=== PATIENT | female | born 1965 | race Two or more races ===

== ENCOUNTER 2024-07-13 16:01 | Emergency (ER) | payer MEDICAID, OTHER ==
[~2024-07-13] VITALS: Ht 154.9 cm; Wt 55.0 kg
--- NOTE | 2024-07-13 16:16 | ED.PDOC ---
History of Present Illness HPI Comments 58F who is malay speaking, presents to the Er w/ no prior Hx associated to the c/c of ABD pain. Pt reports on having LLQ pain which started yesterday as well as her having to strain to go to the bathroom. PM<Hx of DM. SHx of . Denies chills, fever, N/V/D, SOB, CP or other associated symptoms, modifiers or recent injuries or sick contact at this time. Chief Complaint: Abdominal Pain Time Seen by MD: 16:00 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 [employer] History Family History Family History: Reviewed,noncontributory to illness, Unobtainable Social History Smoker: Cigarettes, Less Than 1 Pack/Day Alcohol: Denies ETOH Use Drugs: Denies Drug Use Lives In: Home Constitutional: denies: chills, diaphoresis, fatigue, fever, malaise, sweats, weakness, others EENTM: denies: blurred vision, double vision, ear bleeding, ear discharge, ear drainage, ear pain, ear ringing, eye pain, eye redness, hearing loss, mouth pain, mouth swelling, nasal discharge, nose bleeding, nose congestion, nose pain, photophobia, tearing, throat pain, throat swelling, voice changes, others Respiratory: denies: cough, hemoptysis, orthopnea, SOB at rest, shortness of breath, SOB with excertion, stridor, wheezing, others Cardiovascular: denies: chest pain, dizzy spells, diaphoresis, Dyspnea on exertion, edema, irregular heart beat, left arm pain, lightheadedness, palpitations, PND, syncope, others Gastrointestinal: reports: abdominal pain; denies: abdomen distended, blood streaked bowels, constipated, diarrhea, dysphagia, difficulty swallowing, hematemesis, melena, nausea, poor appetite, poor fluid intake, rectal bleeding, rectal pain, vomiting, others Genitourinary: denies: abnormal vagina bleeding, burning, dyspareunia, dysuria, flank pain, frequency, hematuria, incontinence, pain, , vagina discharge, urgency, others Neurological: denies: dizziness, fainting, headache, left sided numbness, left sided weakness, numbness, paresthesia, pre-existing deficit, right sided numbn ess, right sided weakness, seizure, speech problems, tingling, tremors, weakness, others Musculoskeletal: denies: back pain, gout, joint pain, joint swelling, muscle pain, muscle stiffness, neck pain, others Integumetry: denies: bruises, change in color, change in hair/nails, dryness, laceration, lesions, lumps, rash, wounds, others Allergic/Immunocompromised: denies: Difficulty Healing, Frequent Infections, Hives, Itching, others Hematologic/Lymphatic: denies: anemia, blood clots, easy bleeding, easy bruising, swollen glands, others Endocrine: denies: excessive hunger, excessive sweating, excessive thirst, excessive urination, flushing, intolerance to cold, intolerance to heat, unexplained weight gain, unexplained weight loss, others Psychiatric: denies: anxiety, bipolar disorder, depression, hopeless, panic disorder, schizophrenia, sleepless, suicidal, others All Other Systems: Reviewed and Negative Physical Exam General Appearance: No Apparent Distress, Normal HEENT: Normal ENT Inspection, Pharynx Normal, TMs Normal Neck: Full Range of Motion, Non-Tender, Normal, Normal Inspection Respiratory: Chest Non-Tender, Lungs Clear, No Accessory Muscle Use, No Respiratory Distress, Normal Breath Sounds Cardiovascular: No Edema, No JVD, No Murmur, No Gallop, Normal Peripheral Pulses, Regular Rate/Rhythm Breast Exam: Deferred Gastrointestinal: No Organomegaly, Non Tender, No Pulsatile Mass, Normal Bowel Sounds, Soft Genitalia: Deferred Pelvic: Deferred Rectal: Deferred Extremities: No calf tenderness, Normal capillary refill, Normal inspection, Normal range of motion, Non-tender, No pedal edema Musculoskeletal : Apperance: Normal Neurologic: Alert, betting agency manager II-XII nml as Tested, No Motor Deficits, Normal Affect, Normal Mood, No Sensory Deficits Cerebellar Function: Normal Reflexes: Normal Skin: Dry, Normal Color, Warm Lymphatic: No Adenopathy Was a procedure done? Was a procedure done?: No Differential Dx Considerations may include: Constipation, gastritis, gastroenteritis, testicular or ovarian torsion, pyelonephritis, UTI, abdominal mass, ischemic colitis, infectious colitis, a that is, ovarian cysts if female, PID, ectopic if female, biliary colic, hepatitis, nephrolithiasis X-Ray, Labs, Meds, VS Vital Signs Date Time Temp Pulse Resp B/P (MAP) Pulse Ox O2 Delivery O2 Flow Rate FiO2 07/13/24 16:26 63 18 131/50 (77) 99 07/13/24 16:26 63 18 99 Room Air 07/13/24 16:11 98.0 67 16 151/52 (85) 100 Lab Test 07/13/24 16:00 Range/Units Urine Color Colorless Yellow Urine Clarity Clear Clear Urine pH 5.5 5.0-9.0 Urine Specific [place] 1.005 1.001-1.035 Urine Protein Negative Negative Urine Ketones Negative Negative Urine Blood Negative Negative /uL Urine Nitrite 1+ H Negative Urine Bilirubin Negative Negative Urine Urobilinogen Normal Negative mg/dL Urine Leukocyte Esterase 2+ Negative /uL Urine RBC 3 0 - 4 /hpf Urine WBC 30 0 - 5 /hpf Urine Squamous Epithelial Cells Few <5 /hpf Urine Bacteria Few H None Seen /hpf Urine Glucose 4+ H Normal mg/dL Current Medications Medications (Trade) Dose Ordered Sig/Andrews Route Start Time Stop Time Status Last Admin Lactulose 30 ml ONCE ONCE PO 07/13/24 16:15 07/13/24 16:16 DC 07/13/24 16:31 Time of 1ST Reevaluation: 16:30 Reevaluation 1ST: Unchanged Patient Education/Counseling: Diagnosis, Treatment, Prognosis Family Education/Counseling: No Family Present Departure 1 Departure Time of Disposition: 17:52 Impression: Primary Impression: Abdominal pain Disposition: 01 HOME / SELF CARE / HOMELESS Condition: Stable Discharged With: Self Critical Care Note Critical Care Time?: No Stability Stability form required: No I personally scribed for CYNTHIA MAX MD ([email or web address]) on 07/13/24 at 16:16. Electronically submitted by Víctor Tolbert ([email or web address]). CYNTHIA MAX MD Jul 13, 2024 16:16
[2024-07-13] MEDS: LACTULOSE 20Gm/30ML SOLN PO ONE (16:31)
--- NOTE | 2024-07-13 17:17 | DVH ---
Procedure: XY KUB ABDOMEN SINGLE VIEW Study Date and Requested Time: 07/13/2024 05:12 PM History: Constipation Technique: 2 views of the abdomen and pelvis available for evaluation. Comparison: None Findings/ Impression: Nonspecific bowel gas pattern. No evidence of bowel obstruction or ileus. Moderate amount of fecal m aterial within the colon. No abnormal calcifications are noted. Phleboliths are noted within the pelvis. Peripherally calcifie d small lucencies are noted overlying the left iliac bone which may represent injection granulomas. Partially visualized left lung bases clear. No evidence of acute bony abnormalities. A zipper pull overlies the left iliac bone which is most lik brett external to the patient.
[2024-07-13 17:30] LABS: Urine Bacteria FEW /hpf (None Seen); Urine Blood Negative /uL (Negative); Urine Clarity Clear (Clear); Urine Color Colorless (Yellow); Urine Protein, UAD Negative (Negative); Urine Specific Gravity 1.005 (1.001-1.035); Urine Squamous Epithelial Cell FEW /hpf (<5); Urine Urobilinogen Normal (Negative); Urine WBC 30 /hpf (0 - 5); Urine pH 5.5 (5.0-9.0)
[2024-07-13 18:09] VITALS: BP 133/77; PULSE 68; RESP 16; O2SAT 98
[2024-07-13] MEDS ORDERED: NITR-87 PO (18:26)
[2024-07-13] MEDS ORDERED: ACET500T58 PO (18:26)
[2024-07-13] MEDS: NITROFURANTOIN 100 mg CAP PO ONE (18:42)
[2024-07-14] MEDS ORDERED: ACET500T58 PO (12:26)
[2024-07-14] MEDS ORDERED: NITR-87 PO (12:26)
== END 2024-07-13 18:45 | disposition home or self-care (01) ==
LOC: ER 16:01
DX: R10.32 Left lower quadrant pain (principal); K59.00 Constipation, unspecified; E11.9 Type 2 diabetes mellitus without complications; F17.210 Nicotine dependence, cigarettes, uncomplicated
CPT/HCPCS: 74018; 81001